=== PATIENT | male | born 2000 | race Caucasian/White ===

== ENCOUNTER 2024-08-17 20:26 | Emergency (ER) | payer OTHER ==
[~2024-08-17] VITALS: Ht 195.6 cm; Wt 108.9 kg
[2024-08-17] MEDS ORDERED: IBUPROFEN 600 MG TABLET ONE (21:43)
[2024-08-17] MEDS ORDERED: ACETAMINOPHEN 500 MG TABLET ONE (21:43)
[2024-08-17] MEDS: IBUPROFEN 600 MG TABLET PO ONE (21:47)
[2024-08-17] MEDS: ACETAMINOPHEN 500 MG TABLET PO ONE (21:48)
[2024-08-17] MEDS ORDERED: HYDR-3980 PO (22:23)
[2024-08-17] MEDS ORDERED: KETOROLAC TROMETHAMINE 30 MG INJ ONE (22:30)
[2024-08-17] MEDS: KETOROLAC TROMETHAMINE 30 MG INJ IM ONE (22:38)
[2024-08-17 22:58] VITALS: BP 136/88; TEMP 97.8; O2SAT 99
== END 2024-08-17 22:58 | disposition home or self-care (01) ==
LOC: ER 20:29
DX: M24.411 Recurrent dislocation, right shoulder (principal); F17.200 Nicotine dependence, unspecified, uncomplicated; J45.909 Unspecified asthma, uncomplicated
CPT/HCPCS: 99283; 73020; 96372; J1885; A4606; A4663; A9150